=== PATIENT | male | born 1970 | race Caucasian/White ===

== ENCOUNTER → 2016-05-26 | Outpatient (REF) ==
--- NOTE | 2016-05-26 18:19 | REP ---
RIGHT SHOULDER, THREE VIEWS: HISTORY: Degenerative disc disease, disability. No comparison imaging. There is normal alignment of the glenohumeral and acromioclavicular joints. There is minimal narrowing and hypertrophy at the AC joint consistent with early osteoarthritic . Periarticular soft-tissues are unremarkable. No erosive changes are seen. IMPRESSION: Minimal narrowing of the AC joint consistent with early osteoarthritis. Otherwise neg right shoulder views. Signed by Tito Almaguer MD 05/27/2016 03:30 P
== END ==
LOC: M SMT 09:50
PROVIDERS: ATTEND Internal Medicine
DX: M19.011 Primary osteoarthritis, right shoulder (principal)